=== PATIENT | male | born 1985 | race Caucasian/White ===

== ENCOUNTER 2019-07-24 02:25 | Emergency (ER) | payer SELFPAY ==
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
[2019-07-24 02:33] VITALS: BP 124/79; PULSE 92; RESP 18; TEMP 36.6; O2SAT 100; BMI 19.9
[2019-07-24 02:44] VITALS: RESP 18
[2019-07-24] MEDS: tetanus-dipt-pertussis 0.5 mL SDV IM (02:44)
[2019-07-24] MEDS: morphine 4 mg/mL SDV 1 mL IVP (02:44)
[2019-07-24] MEDS: iohexol 300 mg/mL 100 mL Btl IV (03:13)
[2019-07-24 03:22] LABS: Alanine Aminotransferase 41 U/L (0-41); Albumin Level 4.6 g/dL (3.5-5.2); Alkaline Phosphatase 90 IU/L (40-130); Anion Gap 14.7 (5-19); Aspartate Amino Transferase 26 U/L (0-40); Blood Urea Nitrogen 11 mg/dL (6-20); Calcium 9.6 mg/Dl (8.6-10.0); Carbon Dioxide 28 mmol/L (22-29); Chloride 100 mmol/L (98-107); Globulin 2.8 g/dL (1.3-4.6); Glomerular Filtration Rate 77.6 mL/min (90-130); Glucose 98 mg/dL (74-109); Potassium 3.7 mmol/L (3.5-5.1); Sodium 139 mmol/L (136-145); Total Bilirubin 0.5 mg/dL (0.15-1.2); Total Protein 7.4 g/dL (6.6-8.7)
--- NOTE | 2019-07-24 03:31 | PC.NURSE ---
c/o back pain and headache
[2019-07-24 04:14] VITALS: BP 106/84; PULSE 92; RESP 16; O2SAT 96
[2019-07-24 05:31] LABS: Basophils # 0.1 10^3/uL (0.0-0.1); Basophils % 1.2 %; Eosinophils # 0.2 10^3/uL (0.0-0.8); Eosinophils % 2.5 %; Hematocrit 45.2 % (42.0-52.0); Lymphocytes # 4.2 10^3/uL (0.8-4.8); Lymphocytes % 57.6 %; Mean Corpuscular HGB Conc 33.2 g/dL (30.0-36.0); Mean Corpuscular Hemoglobin 30.5 pg (28.0-34.0); Mean Corpuscular Volume 91.9 fL (80-94); Mean Platelet Volume 10.6 fL (7.4-10.4); Monocytes # 0.6 10^3/uL (0.2-0.9); Monocytes % 7.7 %; Neutrophils # 2.2 10^3/uL (1.8-7.7); Neutrophils % 30.7 %; Nucleated Red Blood Cells % 0 %; Platelet Count 217 10^3/cmm (130-400); Red Blood Count 4.92 10^6/uL (4.1-5.3); Red Cell Distribution Width 12.4 % (12.1-15.1); White Blood Count 7.3 10^3/uL (4.0-10.0)
[2019-07-24 05:56] LABS: INR 0.98 (0.8-1.2)
[2019-07-24 06:02] LABS: Slide Review Slide Review Perform
== END 2019-07-24 04:15 | disposition home or self-care (01) ==
PROVIDERS: Emergency Provider Emergency Medicine
DX: S39.012A Strain of muscle, fascia and tendon of lower back, initial encounter (principal); V59.9XXA Occupant (driver) (passenger) of pick-up truck or van injured in unspecified traffic accident, initial encounter; F17.210 Nicotine dependence, cigarettes, uncomplicated; Z23 Encounter for immunization
CPT/HCPCS: 70450; 70486; 71260; 72125; 74177; 80053; 85025; 85610; 90472; 90715; 96375; 99281; J2270; Q9967

== ENCOUNTER 2020-02-10 12:09 | Emergency (ER) | payer SELFPAY ==
[2020-02-10 12:21] VITALS: BP 129/80; PULSE 111; RESP 18; TEMP 36.6; O2SAT 95; BMI 19.5
--- NOTE | 2020-02-10 12:34 | W.ED.ABDPA2 ---
HPI - Abdominal Pain General: Chief Complaint: Abdominal Pain Stated Complaint: ABD PAIN Time Seen by Provider: 02/10/20 12:12 Source: patient Mode of arrival: other (police custody ) Limitations: no limitations History of Present Illness: HPI narrative: Patient is a 34-year-old male who arrives to the ED today in police custody for evaluation for right-sided abdominal pain. Patient tells me the pain began around 3 AM and awoke him from sleep. Patient tells me pain has been fairly constant since onset. He feels nauseous but has not had any episodes of vomiting. He reports normal bowel and urinary habits. He has not been running fevers. He states pain is localized to his right lower abdomen. He does have a history of kidney and ureter stones although states this feels different. MD elicited complaint: abdominal pain Onset (ago): hour(s) Pain Consistency: constant Location: RLQ Severity: moderate Quality: sharp Radiation: none Migration to: no migration Exacerbating factors: nothing Relieving factors: nothing Associated Symptoms: Reports nausea; Denies change in stool character, chills, coffee ground emesis, constipation, diarrhea, dysuria, fever(s), heartburn, hematochezia, hematemesis, melena, syncope and vomiting Review of Systems Const: Denies: fever(s) or chills Eyes: Denies: change in vision or blurry vision Card: Denies: chest pain, palpitations, irregular heart rhythm, lightheadedness, syncope or dyspnea on exertion Resp: Denies: dyspnea, productive cough or pain on inspiration GI: Reports: abdominal pain and nausea; Denies: vomiting, hematemesis, coffee ground emesis, heartburn, diarrhea, constipation, change in stool character, hematochezia or melena : Denies: flank pain, difficulty urinating, dysuria, urinary frequency, urinary urgency or urinary hesitancy Musc: Denies: neck pain, back pain or joint pain Skin/Breast: Denies: rash Neuro: Denies: headache(s) PFSH ED PFSH: Social History Smoking and tobacco status: current every day smoker Physical Exam Const: COMMON NORMALS: no acute distress, average body habitus, patient oriented x3, no limitations, healthy appearing, alert and well nourished Resp: COMMON NORMALS: normal respiratory effort and clear to auscultation bilaterally AUSCULTATION: clear to auscultation bilaterally Cardio: COMMON NORMALS: regular rate and regular rhythm RATE: regular rate RHYTHM: regular rhythm GI: COMMON NORMALS: Normal to inspection, nondistended, normoactive bowel sounds present, Soft to palpation, No hepatosplenomegaly present and no masses PALPATION: Yes Soft to palpation, Yes Tenderness to palpation present (GI) (suprapubic) Details: RLQ and Yes No hepatosplenomegaly present : COMMON NORMALS: Yes no CVA tenderness BLADDER/KIDNEY EXAM: Yes no CVA tenderness Back/Pelvis: COMMON NORMALS: no CVA tenderness Extremity: COMMON NORMALS: normal to inspection Neuro: COMMON NORMALS: patient oriented x3 SENSORIUM/ORIENTATION: Yes alert Skin: COMMON NORMALS: no rashes or lesions noted GENERAL SKIN EXAM: no rashes or lesions noted Course Vital Signs: Vital signs: Vital Signs Temperature 97.8 F 02/10/20 12:21 Pulse Rate 98 02/10/20 15:26 Respiratory Rate 18 02/10/20 15:26 Blood Pressure 117/87 02/10/20 15:26 Pulse Oximetry 98 02/10/20 15:26 MDM - Abdominal Pain MDM Narrative: Medical decision making narrative: Patient clinically appears well. Patient's labs showing mild leukocytosis at 14.9. Chemistry panel with elevated LFTs. He does have a history of hepatitis C. He has a normal CT abdomen/pelvis and a normal gallbladder ultrasound. UA does not look suspicious for kidney/ureterlithiasis or infection. Patient will be treated with pain and nausea medications. Return to ED precautions given. Lab Data: Labs: Lab Results 02/10/20 02/10/20 02/10/20 Range/Units 12:00 12:00 12:47 WBC 14.9 H (4.0-10.0) 10^3/ uL RBC 5.44 H (4.1-5.3) 10^6/u L Hgb 16.3 (11.7-16.6) g/dL Hct 50.0 (42.0-52.0) % MCV 91.9 (80-94) fL MCH 30.0 (28.0-34.0) pg MCHC 32.6 (30.0-36.0) g/dL RDW 12.5 (12.1-15.1) % Plt Count 287 (130-400) 10^3/c mm MPV 10.5 H (7.4-10.4) fL Neut % (Auto) 70.9 % Lymph % (Auto) 19.7 % [place] % (Auto) 7.7 % Eos % (Auto) 0.7 % Baso % (Auto) 0.4 % Neut # (Auto) 10.54 H (1.8-7.7) 10^3/u L Lymph # (Auto) 2.9 (0.8-4.8) 10^3/u L [place] # (Auto) 1.2 H (0.2-0.9) 10^3/u L Eos # (Auto) 0.1 (0.0-0.8) 10^3/u L Baso # (Auto) 0.1 (0.0-0.1) 10^3/u L Nucleated RBC % (a uto) 0 % Nucleated RBCs # 0.0 /100WBC Sodium Cancelled Potassium Cancelled Chloride Cancelled Carbon Dioxide Cancelled Anion Gap Cancelled BUN Cancelled Creatinine Cancelled GFR Calculation Cancelled Glucose Cancelled Calculated Osmolal ity Cancelled Calcium Cancelled Total Bilirubin Cancelled AST Cancelled ALT Cancelled Alkaline Phosphata se Cancelled Total Protein Cancelled Albumin Cancelled Globulin Cancelled Lipase Cancelled Urine Color Yellow (Yellow) Urine Appearance Clear (CLEAR) Urine pH 7 (5-7) Ur Specific Gravit y 1.015 (1.005-1.030) Urine Protein Neg (Negative) Urine Glucose (UA) Norm (Normal) Urine Ketones Negative (Negative) Urine Blood Neg (Negative) Urine Nitrate Negative (Negative) Urine Bilirubin Neg (NEGATIVE) Urine Urobilinogen 1 H (Negative) mg/dL Ur Leukocyte Shweta ase Negative (Negative) 02/10/20 Range/Units 13:18 WBC (4.0-10.0) 10^3/ uL RBC (4.1-5.3) 10^6/u L Hgb (11.7-16.6) g/dL Hct (42.0-52.0) % MCV (80-94) fL MCH (28.0-34.0) pg MCHC (30.0-36.0) g/dL RDW (12.1-15.1) % Plt Count (130-400) 10^3/c mm MPV (7.4-10.4) fL Neut % (Auto) % Lymph % (Auto) % [place] % (Auto) % Eos % (Auto) % Baso % (Auto) % Neut # (Auto) (1.8-7.7) 10^3/u L Lymph # (Auto) (0.8-4.8) 10^3/u L [place] # (Auto) (0.2-0.9) 10^3/u L Eos # (Auto) (0.0-0.8) 10^3/u L Baso # (Auto) (0.0-0.1) 10^3/u L Nucleated RBC % (a uto) % Nucleated RBCs # /100WBC Sodium 135 L Potassium 4.2 Chloride 102 Carbon Dioxide 24 Anion Gap 13.2 BUN 16 Creatinine 0.8 GFR Calculation 112.0 Glucose 101 Calculated Osmolal ity 276 L Calcium 9.8 Total Bilirubin 0.6 AST 134 H ALT 365 H Alkaline Phosphata se 77 Total Protein 7.7 Albumin 4.5 Globulin 3.2 Lipase 24 Urine Color (Yellow) Urine Appearance (CLEAR) Urine pH (5-7) Ur Specific Gravit y (1.005-1.030) Urine Protein (Negative) Urine Glucose (UA) (Normal) Urine Ketones (Negative) Urine Blood (Negative) Urine Nitrate (Negative) Urine Bilirubin (NEGATIVE) Urine Urobilinogen (Negative) mg/dL Ur Leukocyte Shweta ase (Negative) Imaging Data ^: CT Abd/Pel: Radiologist's impression: [place] [address] CT Scan Report Signed Patient: Juan Roque Unit #: [id number] : 1985 Age/Sex: 34 / M ADM Date: 02/10/20 Loc: ER Room/Bed: Attending Dr: Ordering Provider/Ordering MD: Loretta Pereyra Date of Service: 02/10/20 Procedure(s): CT abdomen pelvis w con* [id number] Accession Number(s): [id number] Report Number: [id number] PROCEDURE INFORMATION: Exam: CT Abdomen And Pelvis With Contrast Exam date and time: 02/10/2020 1:36 PM Age: 34 years old Clinical indication: Abdominal pain; Additional info: Rlq abdominal pain TECHNIQUE: Imaging protocol: Computed tomography of the abdomen and pelvis with intravenous contrast. Radiation optimization: All CT scans at this facility use at least one of these dose optimization techniques: automated exposure control; mA and/or kV adjustment per patient size (includes targeted exams where dose is matched to clinical indication); or iterative reconstruction. Contrast material: OMNI 300; Contrast volume: 95 ml; Contrast route: INTRAVENOUS (IV); COMPARISON: CT chest abd pel w con* 07/24/2019 3:17 AM RADIATION DOSE METRICS: Total DLP (mGy-cm): 511.65 FINDINGS: Liver: Normal. No mass. Gallbladder and bile ducts: Normal. No calcified stones. No ductal dilation. Pancreas: Normal. No ductal dilation. Spleen: Normal. No splenomegaly. Adrenals: Normal. No mass. Kidneys and ureters: Normal. No hydronephrosis. Stomach and bowel: Unremarkable. No obstruction. No mucosal thickening. Appendix: The appendix is visualized and appears normal. What may be appendix is seen on coronal image 31. Intraperitoneal space: Unremarkable. No free air. No significant fluid collection. Vasculature: Unremarkable. No abdominal aortic aneurysm. Lymph nodes: Unremarkable. No enlarged lymph nodes. Bladder: Unremarkable as visualized. Reproductive: Unremarkable as visualized. Bones/joints: Unremarkable. No acute fracture. Soft tissues: Unremarkable. CT/CT abdomen pelvis w con* [id number] IMPRESSION: There are no acute concerning abnormalities. Radiation Dose CTDIVOL = (mGy): DLP = 511.65 (mGy-cm) Dictated By: Karson Glover MD Signed By: Karson Glover MD Signed Date/Time: 02/10/20 1432 DD/ 1431 US gallbladder: Radiologist's impression: [facility] [address] [place] [address] Ultrasound Report Signed Patient: Juan Roque Unit #: [id number] : 1985 Age/Sex: 34 / M ADM Date: 02/10/20 Loc: ER Room/Bed: Attending Dr: Ordering Provider/Ordering MD: Loretta Pereyra Date of Service: 02/10/20 Procedure(s): US gall bladder [id number] Accession Number(s): [id number] Report Number: [id number] PROCEDURE INFORMATION: Exam: US Abdomen, Limited; Right Upper Quadrant Exam date and time: 02/10/2020 2:00 PM Age: 34 years old Clinical indication: Abdominal pain; Additional info: Elevated lfts; R sided abdominal pain TECHNIQUE: Imaging protocol: US abdomen. Real time ultrasound with image documentation. Limited exam focused on the right upper quadrant. COMPARISON: CT abdomen pelvis w con* [id number] 02/10/2020 1:41 PM FINDINGS: Liver: Normal. No masses. Gallbladder: Normal. No gallstones. There is no gallbladder wall thickening. Common bile duct: Normal. No stones. No dilation. Pancreas: Visualized pancreas is unremarkable. Right kidney: Measures 11.5 x 5 x 3.8 cm. No mass. No hydronephrosis. US/US gall bladder [id number] IMPRESSION: No acute findings. Dictated By: Karson Glover MD Signed By: Karson Glover MD Signed Date/Time: 02/10/20 1516 DD/ 14 Discharge Plan Discharge Patient Disposition: Home Clinical Impression: Right-sided abdominal pain of unknown etiology Condition: Stable Prescriptions: New Zofran 4 mg tablet 4 mg PO Q6H PRN (Reason: nausea and vomiting) Qty: 14 RF: 0 Tylenol-Codeine #3 300-30 mg tablet 1 tab PO Q6H PRN (Reason: pain) Qty: 10 RF: 0 Discharge Orders: Discharge Order (Routine); Ordered 02/10/20 Ordered By: Loretta Pereyra Patient Instructions: Abdominal Pain (ED) Activity Restrictions/Additional Instructions: You may return to the emergency department for severe pain, repetitive episodes of vomiting/diarrhea, fevers greater than 100.4, or any other concerns you may have. Discharge Date/Time: 02/10/20 15:28 Coding Level of Care Code ED Web [employer] for Chg Fwd Exam Detailed
[2020-02-10 12:49] LABS: Basophils # 0.1 10^3/uL (0.0-0.1); Basophils % 0.4 %; Eosinophils # 0.1 10^3/uL (0.0-0.8); Eosinophils % 0.7 %; Hemoglobin 16.3 g/dL (11.7-16.6); Lymphocytes # 2.9 10^3/uL (0.8-4.8); Lymphocytes % 19.7 %; Mean Corpuscular HGB Conc 32.6 g/dL (30.0-36.0); Mean Corpuscular Volume 91.9 fL (80-94); Mean Platelet Volume 10.5 fL (7.4-10.4); Monocytes # 1.2 10^3/uL (0.2-0.9); Monocytes % 7.7 %; Neutrophils # 10.54 10^3/uL (1.8-7.7); Neutrophils % 70.9 %; Nucleated Red Blood Cells % 0 %; Platelet Count 287 10^3/cmm (130-400); Red Blood Count 5.44 10^6/uL (4.1-5.3); Red Cell Distribution Width 12.5 % (12.1-15.1); White Blood Count 14.9 10^3/uL (4.0-10.0)
[2020-02-10 13:08] LABS: Add Urine Microscopic? NO
[2020-02-10 13:12] LABS: Bilirubin Urine Neg (NEGATIVE); Blood Urine Neg (Negative); Glucose Urine UA Norm (Normal); Ketones Urine Negative (Negative); Leukocyte Esterase Urine Negative (Negative); Nitrate Urine Negative (Negative); Protein Urine Neg (Negative); Specific Gravity, Urine 1.015 (1.005-1.030); Urine Appearance Clear (CLEAR); Urine Color Yellow (Yellow); Urobilinogen Urine 1 mg/dL (Negative); pH Urine 7 (5-7)
--- NOTE | 2020-02-10 13:20 | CTR_ITS ---
PROCEDURE INFORMATION: Exam: CT Abdomen And Pelvis With Contrast Exam date and time: 02/10/2020 1:36 PM Age: 34 years old Clinical indication: Abdominal pain; Additional info: Rlq abdominal pain TECHNIQUE: Imaging protocol: Computed tomography of the abdomen and pelvis with intravenous contrast. Radiation optimization: All CT scans at this facility use at least one of these dose optimization techniques: automated exposure control; mA and/or kV adjustment per patient size (includes targeted exams where dose is matched to clinical indication); or iterative reconstruction. Contrast material: OMNI 300; Contrast volume: 95 ml; Contrast route: INTRAVENOUS (IV); COMPARISON: CT chest abd pel w con* 07/24/2019 3:17 AM RADIATION DOSE METRICS: Total DLP (mGy-cm): 511.65 FINDINGS: Liver: Normal. No mass. Gallbladder and bile ducts: Normal. No calcified stones. No ductal dilation. Pancreas: Normal. No ductal dilation. Spleen: Normal. No splenomegaly. Adrenals: Normal. No mass. Kidneys and ureters: Normal. No hydronephrosis. Stomach and bowel: Unremarkable. No obstruction. No mucosal thickening. Appendix: The appendix is visualized and appears normal. What may be appendix is seen on coronal image 31. Intraperitoneal space: Unremarkable. No free air. No significant fluid collection. Vasculature: Unremarkable. No abdominal aortic aneurysm. Lymph nodes: Unremarkable. No enlarged lymph nodes. Bladder: Unremarkable as visualized. Reproductive: Unremarkable as visualized. Bones/joints: Unremarkable. No acute fracture. Soft tissues: Unremarkable. CT/CT abdomen pelvis w con* [id number] IMPRESSION: There are no acute concerning abnormalities. Radiation Dose CTDIVOL = (mGy): DLP = 511.65 (mGy-cm)
[2020-02-10] MEDS: ondansetron 2 mg/ML SDV 2 mL 4 MG IVP (13:32)
[2020-02-10 13:35] VITALS: RESP 18; O2SAT 99
[2020-02-10] MEDS: morphine 4 mg/mL SDV 1 mL IVP (13:35)
[2020-02-10] MEDS: iohexol 300 mg/mL 100 mL Btl IV (13:46)
[2020-02-10 13:54] LABS: Alanine Aminotransferase 365 U/L (0-41); Albumin Level 4.5 g/dL (3.5-5.2); Alkaline Phosphatase 77 IU/L (40-130); Anion Gap 13.2 (5-19); Aspartate Amino Transferase 134 U/L (0-40); Blood Urea Nitrogen 16 mg/dL (6-20); Calcium 9.8 mg/dL (8.5-10.5); Carbon Dioxide 24 mmol/L (22-29); Chloride 102 mmol/L (98-107); Creatinine Clr Calc Pharmacy 132.3398; Globulin 3.2 g/dL (1.3-4.6); Glucose 101 mg/dL (65-115); Lipase 24 U/L (13-60); Osmolality Calculated 276 mOsm/kg (285-295); Potassium 4.2 mmol/L (3.5-5.1); Sodium 135 mmol/L (136-145); Total Bilirubin 0.6 mg/dL (0.15-1.2); Total Protein 7.7 g/dL (6.6-8.7)
--- NOTE | 2020-02-10 13:59 | USR_ITS ---
PROCEDURE INFORMATION: Exam: US Abdomen, Limited; Right Upper Quadrant Exam date and time: 02/10/2020 2:00 PM Age: 34 years old Clinical indication: Abdominal pain; Additional info: Elevated lfts; R sided abdominal pain TECHNIQUE: Imaging protocol: US abdomen. Real time ultrasound with image documentation. Limited exam focused on the right upper quadrant. COMPARISON: CT abdomen pelvis w con* [id number] 02/10/2020 1:41 PM FINDINGS: Liver: Normal. No masses. Gallbladder: Normal. No gallstones. There is no gallbladder wall thickening. Common bile duct: Normal. No stones. No dilation. Pancreas: Visualized pancreas is unremarkable. Right kidney: Measures 11.5 x 5 x 3.8 cm. No mass. No hydronephrosis. US/US gall bladder [id number] IMPRESSION: No acute findings.
[2020-02-10 15:26] VITALS: BP 117/87; PULSE 98; RESP 18; O2SAT 98
== END 2020-02-10 15:28 | disposition home or self-care (01) ==
PROVIDERS: Emergency Provider Physician Assistant
DX: R10.9 Unspecified abdominal pain (principal); F17.210 Nicotine dependence, cigarettes, uncomplicated
CPT/HCPCS: 12345; 36415; 74177; 76705; 80053; 81003; 83690; 85025; 96374; 96375; 99282; 99284; J2270; J2405; Q9967

== ENCOUNTER 2020-02-29 21:59 | Emergency (ER) | payer SELFPAY ==
[2020-02-29 22:10] VITALS: BP 113/75; PULSE 62; RESP 18; TEMP 36.5; O2SAT 98; BMI 19.0
[2020-02-29 23:30] LABS: Basophils # 0.1 10^3/uL (0.0-0.1); Eosinophils # 0.1 10^3/uL (0.0-0.8); Eosinophils % 1.9 %; Hematocrit 43.6 % (42.0-52.0); Hemoglobin 14.1 g/dL (11.7-16.6); Lymphocytes # 3.4 10^3/uL (0.8-4.8); Lymphocytes % 45.8 %; Mean Corpuscular HGB Conc 32.3 g/dL (30.0-36.0); Mean Corpuscular Hemoglobin 29.4 pg (28.0-34.0); Mean Platelet Volume 10.5 fL (7.4-10.4); Monocytes # 0.7 10^3/uL (0.2-0.9); Monocytes % 9.8 %; Neutrophils # 3.02 10^3/uL (1.8-7.7); Neutrophils % 41.4 %; Nucleated Red Blood Cells % 0 %; Platelet Count 191 10^3/cmm (130-400); Red Blood Count 4.79 10^6/uL (4.1-5.3); Red Cell Distribution Width 12.2 % (12.1-15.1); White Blood Count 7.3 10^3/uL (4.0-10.0)
[2020-02-29 23:50] LABS: Alanine Aminotransferase 296 U/L (0-41); Albumin Level 4.4 g/dL (3.5-5.2); Alkaline Phosphatase 79 IU/L (40-130); Anion Gap 10.9 (5-19); Aspartate Amino Transferase 120 U/L (0-40); Blood Urea Nitrogen 12 mg/dL (6-20); Calcium 9.6 mg/dL (8.5-10.5); Carbon Dioxide 31 mmol/L (22-29); Chloride 104 mmol/L (98-107); Globulin 2.7 g/dL (1.3-4.6); Glomerular Filtration Rate 77.1 mL/min (90-130); Glucose 99 mg/dL (65-115); Osmolality Calculated 288 mOsm/kg (285-295); Potassium 4.9 mmol/L (3.5-5.1); Sodium 141 mmol/L (136-145); Total Bilirubin 0.4 mg/dL (0.15-1.2); Total Protein 7.1 g/dL (6.6-8.7)
--- NOTE | 2020-02-29 23:59 | W.ED.ABDPA2 ---
HPI - Abdominal Pain General: Chief Complaint: Abdominal Pain Stated Complaint: abd pain Time Seen by Provider: 02/29/20 23:59 Source: patient Mode of arrival: ambulatory Limitations: no limitations History of Present Illness: HPI narrative: Patient comes in for right-sided abdominal pain. Patient states he has hepatitis C and sometimes has liver pain. Patient appears well. Patient appears in no acute distress. Patient did report one episode of emesis this morning. MD elicited complaint: abdominal pain Associated Symptoms: Reports vomiting Review of Systems General: Reports: 10 or more systems reviewed and unremarkable except in HPI and below GI: Reports: abdominal pain and vomiting PFS ED PFSH: Social History Smoking and tobacco status: current every day smoker Physical Exam Const: COMMON NORMALS: no acute distress and patient oriented x3 GENERAL APPEARANCE: cooperative HENMT: COMMON NORMALS: normocephalic and Normal external nose present HEAD & SCALP: normal to inspection and normocephalic NOSE: Normal external nose present MOUTH: Normal oral and palatal mucosa present THROAT: posterior oropharynx normal Eye: GENERAL EYE: appearance normal, both eyes and all related structures Neck/C-Spine: COMMON NORMALS: full ROM Lymph: LYMPHATIC: no lymphadenopathy noted Chest: COMMONS NORMALS: normal inspection of the chest Resp: COMMON NORMALS: normal respiratory effort EFFORT & INSPECTION: Yes able to speak in complete sentences Cardio: COMMON NORMALS: regular rate and regular rhythm RATE: regular rate RHYTHM: regular rhythm GI: COMMON NORMALS: Soft to palpation AUSCULTATION: Yes normoactive bowel sounds PALPATION: Yes Soft to palpation and Yes Tenderness to palpation present (GI) Details: RUQ : COMMON NORMALS: Yes no CVA tenderness BLADDER/KIDNEY EXAM: Yes no CVA tenderness Back/Pelvis: COMMON NORMALS: no CVA tenderness and thoracic and lumbar spine normal to inspection Extremity: COMMON NORMALS: normal to inspection Neuro: COMMON NORMALS: patient oriented x3 and moves all extremities Psych: COMMON NORMALS: mental status grossly normal and cooperative Skin: COMMON NORMALS: no rashes or lesions noted GENERAL SKIN EXAM: no rashes or lesions noted Course Vital Signs: Vital signs: Vital Signs Temperature 97.7 F 02/29/20 22:10 Pulse Rate 87 03/01/20 00:50 Respiratory Rate 16 03/01/20 00:50 Blood Pressure 134/87 03/01/20 00:50 Pulse Oximetry 98 03/01/20 00:50 MDM - Abdominal Pain MDM Narrative: Medical decision making narrative: Patient comes in for right side abdominal pain. On exam patient appears well. Patient appears no acute distress. Abdomen is soft with some right upper quadrant abdominal tenderness. Vital signs were normal. Differential diagnosis includes but not limited to cholecystitis, pancreatitis, renal calculi, malingering. Laboratory values were unremarkable as it being no change from his previous exam 2 weeks ago. At that time patient had multiple imaging including CT of the abdomen and a ultrasound of the liver which showed no abnormalities. Reviewed exam with patient recommended follow-up with primary care for further evaluation and treatment. Patient reported understanding agreed to plan. Lab Data: Labs: Lab Results 02/29/20 02/29/20 02/29/20 Range/Units 23:10 23:10 23:10 WBC 7.3 (4.0-10.0) 10^3/ uL RBC 4.79 (4.1-5.3) 10^6/u L Hgb 14.1 (11.7-16.6) g/dL Hct 43.6 (42.0-52.0) % MCV 91.0 (80-94) fL MCH 29.4 (28.0-34.0) pg MCHC 32.3 (30.0-36.0) g/dL RDW 12.2 (12.1-15.1) % Plt Count 191 (130-400) 10^3/c mm MPV 10.5 H (7.4-10.4) fL Neut % (Auto) 41.4 % Lymph % (Auto) 45.8 % [place] % (Auto) 9.8 % Eos % (Auto) 1.9 % Baso % (Auto) 1.0 % Neut # (Auto) 3.02 (1.8-7.7) 10^3/u L Lymph # (Auto) 3.4 (0.8-4.8) 10^3/u L [place] # (Auto) 0.7 (0.2-0.9) 10^3/u L Eos # (Auto) 0.1 (0.0-0.8) 10^3/u L Baso # (Auto) 0.1 (0.0-0.1) 10^3/u L Nucleated RBC % (a uto) 0 % Nucleated RBCs # 0.0 /100WBC Sodium 141 (136-145) mmol/L Potassium 4.9 (3.5-5.1) mmol/L Chloride 104 (98-107) mmol/L Carbon Dioxide 31 H (22-29) mmol/L Anion Gap 10.9 (5-19) BUN 12 (6-20) mg/dL Creatinine 1.1 (0.7-1.2) mg/dL GFR Calculation 77.1 L (90-130) mL/min Glucose 99 (65-115) mg/dL Calculated Osmolal ity 288 (285-295) mOsm/k g Calcium 9.6 (8.5-10.5) mg/dL Total Bilirubin 0.4 (0.15-1.2) mg/dL AST 120 H (0-40) U/L ALT 296 H (0-41) U/L Alkaline Phosphata se 79 (40-130) IU/L Total Protein 7.1 (6.6-8.7) g/dL Albumin 4.4 (3.5-5.2) g/dL Globulin 2.7 (1.3-4.6) g/dL Lipase 37 (13-60) U/L Urine Color (Yellow) Urine Appearance (CLEAR) Urine pH (5-7) Ur Specific Gravit y (1.005-1.030) Urine Protein (Negative) Urine Glucose (UA) (Normal) Urine Ketones (Negative) Urine Blood (Negative) Urine Nitrate (Negative) Urine Bilirubin (NEGATIVE) Urine Urobilinogen (Negative) mg/dL Ur Leukocyte Shweta ase (Negative) 03/01/20 Range/Units 00:02 WBC (4.0-10.0) 10^3/ uL RBC (4.1-5.3) 10^6/u L Hgb (11.7-16.6) g/dL Hct (42.0-52.0) % MCV (80-94) fL MCH (28.0-34.0) pg MCHC (30.0-36.0) g/dL RDW (12.1-15.1) % Plt Count (130-400) 10^3/c mm MPV (7.4-10.4) fL Neut % (Auto) % Lymph % (Auto) % [place] % (Auto) % Eos % (Auto) % Baso % (Auto) % Neut # (Auto) (1.8-7.7) 10^3/u L Lymph # (Auto) (0.8-4.8) 10^3/u L [place] # (Auto) (0.2-0.9) 10^3/u L Eos # (Auto) (0.0-0.8) 10^3/u L Baso # (Auto) (0.0-0.1) 10^3/u L Nucleated RBC % (a uto) % Nucleated RBCs # /100WBC Sodium (136-145) mmol/L Potassium (3.5-5.1) mmol/L Chloride (98-107) mmol/L Carbon Dioxide (22-29) mmol/L Anion Gap (5-19) BUN (6-20) mg/dL Creatinine (0.7-1.2) mg/dL GFR Calculation (90-130) mL/min Glucose (65-115) mg/dL Calculated Osmolal ity (285-295) mOsm/k g Calcium (8.5-10.5) mg/dL Total Bilirubin (0.15-1.2) mg/dL AST (0-40) U/L ALT (0-41) U/L Alkaline Phosphata se (40-130) IU/L Total Protein (6.6-8.7) g/dL Albumin (3.5-5.2) g/dL Globulin (1.3-4.6) g/dL Lipase (13-60) U/L Urine Color Yellow (Yellow) Urine Appearance Clear (CLEAR) Urine pH 6 (5-7) Ur Specific Gravit y 1.020 (1.005-1.030) Urine Protein Neg (Negative) Urine Glucose (UA) Norm (Normal) Urine Ketones Negative (Negative) Urine Blood Neg (Negative) Urine Nitrate Negative (Negative) Urine Bilirubin Neg (NEGATIVE) Urine Urobilinogen Norm (Negative) mg/dL Ur Leukocyte Shweta ase Negative (Negative) Discharge Plan Discharge Patient Disposition: Home Clinical Impression: Abdominal pain Qualifiers: Abdominal location: right upper quadrant Qualified Code(s): R10.11 - Right upper quadrant pain Hepatitis C Qualifiers: Viral hepatitis chronicity: unspecified Hepatic coma status: without hepatic coma Qualified Code(s): B19.20 - Unspecified viral hepatitis C without hepatic coma Condition: Stable Prescriptions: New ondansetron HCl 4 mg tablet 4 mg PO Q8H PRN (Reason: nausea and vomiting) Qty: 7 RF: 0 No Action Zofran 4 mg tablet 4 mg PO Q6H PRN (Reason: nausea and vomiting) Qty: 14 RF: 0 Tylenol-Codeine #3 300-30 mg tablet 1 tab PO Q6H PRN (Reason: pain) Qty: 10 RF: 0 Discharge Orders: Discharge Order (Routine); Ordered 03/01/20 Ordered By: Francisco Javier Denson Discharge Diet: Usual diet Discharge Activity: Increase activity as tolerated Patient Instructions: Abdominal Pain (ED) Activity Restrictions/Additional Instructions: Home and rest. Drink plenty of fluids. Follow-up with primary care. Return to the emergency department for high fever greater than 100.4, blood in vomit or stool. Coding Level of Care Code ED Cdl Bulk Driver for Raman Fwandre Exam Comprehensive
[2020-03-01 00:15] LABS: Add Urine Microscopic? NO
[2020-03-01 00:26] LABS: Lipase 37 U/L (13-60)
[2020-03-01 00:37] LABS: Bilirubin Urine Neg (NEGATIVE); Blood Urine Neg (Negative); Glucose Urine UA Norm (Normal); Ketones Urine Negative (Negative); Leukocyte Esterase Urine Negative (Negative); Nitrate Urine Negative (Negative); Protein Urine Neg (Negative); Urine Appearance Clear (CLEAR); Urine Color Yellow (Yellow); Urobilinogen Urine Norm (Negative); pH Urine 6 (5-7)
[2020-03-01 00:50] VITALS: BP 134/87; PULSE 87; RESP 16; O2SAT 98
[2020-03-01 01:20] VITALS: BP 130/80; PULSE 80; RESP 18; O2SAT 99
== END 2020-03-01 01:20 | disposition home or self-care (01) ==
PROVIDERS: Emergency Provider Nurse Practitioner Family
DX: R10.11 Right upper quadrant pain (principal); B19.20 Unspecified viral hepatitis C without hepatic coma; F17.210 Nicotine dependence, cigarettes, uncomplicated
CPT/HCPCS: 12345; 80053; 81003; 83690; 85025; 99282; 99283

== ENCOUNTER 2020-04-02 21:05 | Emergency (ER) | payer SELFPAY ==
[2020-04-02 21:08] VITALS: PULSE 107; RESP 14; TEMP 37; O2SAT 96; BMI 19.5
--- NOTE | 2020-04-02 21:13 | ED_ITS ---
HPI - General Adult General: Chief complaint: General Medical Stated complaint: right ankle pain Time Seen by Provider: 04/02/20 21:08 History of Present Illness: HPI narrative: Patient is a 35-year-old male who comes to the ED with left foot pain and swelling. Patient says it started approximately 5 days ago. He denies any known injury to the left leg. He currently rates his pain a 7 out of 10. He has been applying ice on left foot and ankle to help with swelling. Denies any past MRSA or staph infections. Associated symptoms: Deny chest pain, dyspnea, headache(s), nausea, rash, palpitations or vomiting Review of Systems Const: Denies: fever(s), chills or fatigue Eyes: Denies: change in vision or eye discomfort ENMT: Denies: throat pain, odynophagia, nasal discharge or nasal congestion Card: Denies: chest pain, palpitations, edema, swelling of feet/ankles, dyspnea on exertion or orthopnea Resp: Denies: dyspnea, productive cough or non-productive cough GI: Denies: abdominal pain, nausea, vomiting, diarrhea, constipation or hematochezia : Denies: flank pain, difficulty urinating, dysuria or hematuria Musc: Reports: extremity pain (left foot) and extremity swelling (left foot swelling); Denies: neck pain or back pain Skin/Breast: Reports: erythema (skin on right foot); Denies: rash or new lesions Neuro: Denies: headache(s), numbness in extremities or weakness in extremities PFS ED PFSH: Social History Smoking and tobacco status: current every day smoker Physical Exam Const: COMMON NORMALS: no acute distress, patient oriented x3 and alert GENERAL APPEARANCE: cooperative and comfortable HENMT: COMMON NORMALS: normocephalic HEAD & SCALP: normocephalic MOUTH: Normal oral and palatal mucosa present THROAT: posterior oropharynx normal and uvula midline Eye: COMMON NORMALS: Equal, round and reactive pupils present PUPIL: Yes Equal, round and reactive pupils present Neck/C-Spine: COMMON NORMALS: supple GENERAL: Yes normal visual inspection Resp: COMMON NORMALS: normal respiratory effort, No retractions, No use of accessory muscles and clear to auscultation bilaterally AUSCULTATION: clear to auscultation bilaterally Cardio: COMMON NORMALS: regular rate, regular rhythm, S1 normal heart sound present, S2 normal heart sound present, No gallops present (Cardio), No clicks present (Cardio), No murmurs present (Cardio) and Peripheral pulses 2+ throughout RATE: regular rate RHYTHM: regular rhythm HEART SOUNDS: S1 normal heart sound present and S2 normal heart sound present PERIPHERAL PULSES: Peripheral pulses 2+ throughout GI: COMMON NORMALS: Normal to inspection, nondistended, normoactive bowel sounds present, Soft to palpation, non-tender and no masses PALPATION: Yes Soft to palpation : COMMON NORMALS: Yes no CVA tenderness BLADDER/KIDNEY EXAM: Yes no CVA tenderness Back/Pelvis: COMMON NORMALS: no CVA tenderness Extremity: GENERAL: Yes normal exam except as noted and Yes edema (2+ pitting edema on left foot that goes up into his ankle and approximately mid medrano region. Patient had 1+ pitting edema on right foot that did not go up above the ankle.) LEFT LOWER EXTREMITY: Yes foot & digits Left foot and digits: Yes inspection (2+ pitting edema in the left foot that goes up above ankle. Erythema and warmth still present on skin of left foot. No visible wounds seen), Yes palpation (Tender to palpation all over left foot), Yes ROM (Limited range of motion due to pain) and Yes neurovascular exam (Intact) Neuro: COMMON NORMALS: patient oriented x3 and moves all extremities SENSORIUM/ORIENTATION: Yes alert Skin: NARRATIVE SKIN EXAM: Erythema, warmth and tenderness to palpation on the skin left foot. No visible wound or drainage seen. Exam findings are suggestive of cellulitis. GENERAL SKIN EXAM: dry skin Course Vital Signs: Vital signs: Vital Signs Temperature 98.6 F 04/02/20 21:08 Pulse Rate 89 04/02/20 22:53 Respiratory Rate 18 04/02/20 22:53 Blood Pressure 158/76 04/02/20 22:53 Pulse Oximetry 98 04/02/20 22:53 MDM - General Adult MDM Narrative: Medical decision making narrative: Patient is a 35-year-old male comes to the ED with lower extremity edema and pain in the left foot. Denies any trauma or injury to cause pain. Physical exam shows 1+ pitting edema to right foot and left foot 2+ pitting edema. On left foot patient has tenderness to palpation throughout left foot and there is erythema and warmth of the skin. Findings are suggestive of cellulitis. Left foot x-ray was performed and showed no acute fractures or findings. Ultrasound venous duplex of both right and left lower extremities showed no DVTs or blood clots. Patient was diagnosed with cellulitis and sent home with a prescription for Bactrim. Return to ED precautions given. Patient was told to follow-up with PCP in 7 to 10 days. Take Tylenol or ibuprofen for pain. Patient understood and agreed with plan. Imaging Data^: Xray Ortho: Attestation: I personally reviewed and interpreted this imaging study as follows: My impression: Left foot x-ray showed no acute fractures or findings. US Vascular: Attestation: I personally reviewed and interpreted this imaging study as follows: Radiologist's impression: Ultrasound venous duplex bilateral lower extremities?prelim report showed no DVTs or blood clots. Discharge Plan Discharge Patient Disposition: Home Clinical Impression: Cellulitis Qualifiers: Site of cellulitis: extremity Site of cellulitis of extremity: lower extremity Laterality: left Qualified Code(s): L03.116 - Cellulitis of left lower limb Condition: Stable Prescriptions: New Bactrim DS 800-160 mg tablet 1 tab PO BID 7 Days Qty: 14 RF: 0 No Action No Known Home Medications RF: 0 Discharge Orders: Discharge Order (Routine); Ordered 04/02/20 Ordered By: Neo Garcia Discharge Diet: Regular Discharge Activity: Increase activity as tolerated Patient Instructions: Cellulitis (ED) Activity Restrictions/Additional Instructions: Follow-up with medical provider as directed 5-7 days. Take medications as prescribed. Return to the ER or your medical provider if condition worsens. Please read and understand discharge instructions. If any questions, please ask. 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
--- NOTE | 2020-04-02 21:19 | XR_ITS ---
WS: [id number] Left foot, 3 views, 04/02/2020 Clinical Data: left foot pain Comparison: Left foot, 03/18/2019. Findings: No fractures or dislocations are seen. No bone destruction or erosion is noted. The joint spaces and soft tissues are normal. There is swelling over the dorsum of the foot. XR/XR foot LT min 3V* [id number] Impression: Dorsal left foot swelling.
[2020-04-02] MEDS: HYDROcodone-acetaminophen 7.5-325 mg Tablet 1 TAB PO (21:29)
--- NOTE | 2020-04-02 21:56 | USCV_ITS ---
Juan Roque Age: 35 Gender: M : 1985 Exam Date: 04/02/2020 22:15 Ordering Phys: Neo Garcia Technologist: Bruce Perez Exam Location: [facility] [place] Indication: LEG PAIN HISTORY: Lower extremity pain. PROCEDURES: The venous duplex Doppler examination of both lower extremities was performed in the standard fashion. The following venous structures were evaluated: common femoral vein, profunda vein, proximal portion of the greater saphenous vein, superficial femoral vein, and the popliteal vein. In addition, the posterior tibial and peroneal trunk were evaluated. Bilaterally, the common femoral, superficial femoral, profunda femoral, popliteal, posterior tibial, greater saphenous veins, and the peroneal trunk were identified and interrogated in the standard fashion. These veins were found to be easily compressible with spontaneous blood flow. No evidence of insufficiency or thrombus noted. FINDINGS: Normal 2-D Doppler and augmentation and compressibility throughout the lower extremity venous structures. Additional imaging through the proximal calf veins also reveals no thrombus. Limited evaluation of the greater saphenous vein is patent with no thrombus.. CONCLUSIONS No evidence of right lower extremity DVT. No evidence of left lower extremity DVT. Luigi Hinkle MD (Electronically Signed) Final Date: 03 April 2020 12:49 S
[2020-04-02 22:53] VITALS: BP 158/76; PULSE 89; RESP 18; O2SAT 98
[2020-04-02] MEDS: sulfamethoxazole-trimeth DS 160-800 mg Tablet 1 TAB PO (22:53)
== END 2020-04-02 22:55 | disposition home or self-care (01) ==
PROVIDERS: Emergency Provider Physician Assistant
DX: L03.116 Cellulitis of left lower limb (principal); F17.210 Nicotine dependence, cigarettes, uncomplicated
CPT/HCPCS: 12345; 73630; 93970; 99281; 99283

== ENCOUNTER → 2023-08-04 11:00 | Outpatient (BNVA) | payer BC, SELFPAY | PROVIDERS: PCP Family Medicine; Visit Provider Family Medicine | DX: B19.20 Unspecified viral hepatitis C without hepatic coma (principal) | CPT/HCPCS: 80053; 80074; 84443; 85025; 87522; 87806; 87902 ==

== ENCOUNTER 2023-08-12 11:10 | Outpatient (CLI) | payer BC, MEDICAID, SELFPAY ==
--- NOTE | 2023-08-12 11:30 | US_ITS ---
WS: [id number] Complete ABDOMINAL ULTRASOUND HISTORY: liver eval for hep c COMPARISON: 02/10/2020 Liver: 15.6 cm in length. Normal size liver and echogenicity. No bile duct dilatation or mass. Portal Vein: Normal hepatopetal flow with monophasic waveform. Gallbladder: Normally distended gallbladder with no stones or wall thickening. CBD: 0.5 cm Pancreas: Normal size and echogenicity. Right kidney: 11.2 cm x 4.7 x 3.9 cm. Cortex: 1.3 cm. Normal size and echogenicity. No hydronephrosis or mass. Left kidney: 11.8 cm x 4.7 cm x 4.5 cm. Cortex: 1.3 cm. Normal size and echogenicity. No hydronephrosis or mass. Spleen: 11.3, normal. Aorta and IVC: Unremarkable abdominal aorta and IVC. Impression: Normal complete abdomen ultrasound.
== END 2023-08-12 11:11 | disposition home or self-care (01) ==
LOC: RAD 11:11
PROVIDERS: PCP Family Medicine; Visit Provider Family Medicine
DX: B19.20 Unspecified viral hepatitis C without hepatic coma (principal); K74.60 Unspecified cirrhosis of liver; R11.2 Nausea with vomiting, unspecified
CPT/HCPCS: 76700

== ENCOUNTER 2023-08-24 11:10 | Day surgery (SDC) | payer BC, MEDICAID, SELFPAY ==
[2023-08-24 11:23] VITALS: BP 110/74; PULSE 88; RESP 18; TEMP 36.9; O2SAT 96
[2023-08-24] MEDS: sodium chloride 0.9% 1,000 ML 30 ML IV (11:30)
--- NOTE | 2023-08-24 13:27 | P.HPUD_ITS ---
Surgery/Procedure H&P Update DATE OF PROCEDURE: August 24, 2023 DATE H&P PERFORMED: 08/11/23 H&P UPDATE INFORMATION: I have reviewed H&P completed within last 30 days, I have examined patient prior to procedure and No changes to prior documentation PLANNED PROCEDURE: Operation Date: 08/24/23 12:30 Proposed Procedures p [id number] egd [id number] colonoscopy G0121 screen colon a risk R11.2,Z12.11,(Not Lidia licable) - Noah Chin DO s Colonoscopy(Not Applicable) - Noah Chin DO
--- NOTE | 2023-08-24 13:27 | W.PM.OPSUD ---
Surgery/Procedure H&P Update DATE OF PROCEDURE: August 24, 2023 DATE H&P PERFORMED: 08/11/23 H&P UPDATE INFORMATION: I have reviewed H&P completed within last 30 days, I have examined patient prior to procedure and No changes to prior documentation PLANNED PROCEDURE: Operation Date: 08/24/23 12:30 Proposed Procedures p [id number] egd [id number] colonoscopy G0121 screen colon a risk R11.2,Z12.11,(Not Applicable) - DO ludy Rm Colonoscopy(Not Applicable) - Noah Chin DO
--- NOTE | 2023-08-24 13:29 | P.ANESASSM_ITS ---
Pre-Anesthetic Assessment Height/Weight: Height 1.8 m Weight 67.132 kg Temp Pulse Resp BP Pulse Ox O2 Del Method 98.4 F 88 18 110/74 96 Room Air 08/24/23 11:23 08/24/23 11:23 08/24/23 11:23 08/24/23 11:23 08/24/23 11:23 08/24/23 11:23 Preop Diagnosis: screening Operation Date: 08/24/23 12:30 Proposed Procedures p [id number] egd [id number] colonoscopy G0121 screen colon a risk R11.2,Z12.11,(Not Applicable) - Noah Chin DO s Colonoscopy(Not Applicable) - Noah Chin DO Was Beta Elana taken within 24 hours: N/A Was Clonidine taken within 24 hours: N/A Last intake: Intake Last Liquid Date 08/23/23 Last Liquid Time 00:00 Last Solid Date 08/22/23 Last Solid Time 23:00 Social Tobacco 1ppd pack(s) per day Exam alert and oriented x 3 Airway Submandibular: within normal limits Cervical ROM: within normal limits Mallampati: Class I Dentition: chipped, loose and other (poor 'decayed') History/ROS No significant history except as noted Pulmonary None reported CV/HEM None reported None reported Hepatic Hepatitis GI None reported Metabolic None reported Musc/skel None reported Neuropsych None reported Anesthetic Plan ASA status: 2 Anesthesia: MAC Risk of > 500 ml blood loss (7ml/kg in children): No Medications/Allergies Home Medications Medication Instructions Recorded Confirmed Last Taken Type amitriptyline 25 mg tablet 25 mg PO DAILY #30 tabs 08/04/23 08/24/23 08/23/23 Rx docusate sodium 100 mg capsule 100 mg PO BID #180 caps 08/04/23 08/24/23 08/23/23 Rx methadone 10 mg tablet 90 mg PO DAILY 08/04/23 08/24/23 08/23/23 History ondansetron 4 mg disintegrating 4 mg PO Q8H PRN nausea and 08/04/23 08/24/23 08/23/23 Rx tablet vomiting #30 tabs pantoprazole 40 mg tablet,delayed 40 mg PO DAILY #30 tabs 08/04/23 08/24/23 08/23/23 Rx release varenicline 0.5 mg (11)-1 mg (42) See Rx Instructions PO PER PKG DIR 08/04/23 08/24/23 08/23/23 Rx tablets in a dose pack ([employer] #53 ea Starting Month Box) azithromycin 250 mg tablet 250 mg PO DAILY 08/22/23 08/24/23 08/23/23 History (Zithromax Z-Ócsar) Allergies Allergy/AdvReac Type Severity Reaction Status Date / Time No Known Allergies Allergy Verified 08/22/23 12:25 [facility] Anesthesia Medical History History of intravenous drug abuse Smoker Insomnia Nausea & vomiting Cirrhosis Hepatitis C Surgical History No history of previous surgery Family History Grandfather Lung cancer Social History Smoking and tobacco/nicotine status: current every day tobacco/nicotine user cigarettes Packs smoked per day: 1 Years cigarettes smoked: 26 [ Other cigarette details: started at age 10] Quit status (tobacco/nicotine): considering quitting Alcohol intake: former Substance/Drug Use: former Date of last use: 2022 Former substance use details: heroine Household members: significant other Current occupational status: unemployed Data Anesthesia Cardiac Studies: No Data to Display
[2023-08-24 13:52] VITALS: BP 119/81; PULSE 91; RESP 20; TEMP 36.4; O2SAT 95
[2023-08-24 13:57] VITALS: BP 133/92; PULSE 97; RESP 20; O2SAT 96
[2023-08-24 14:07] VITALS: BP 121/63; PULSE 88; RESP 20; O2SAT 97
--- NOTE | 2023-08-24 14:53 | ANE.PACU2 ---
Inpatient post-anesthesia follow up: Airway intact: Yes Vital signs: Temperature 97.6 F Pulse Rate 88 Respiratory Rate 20 Blood Pressure 121/63 Pulse Oximetry 97 Oxygen Delivery Me thod Room Air Oxygen Flow Rate Fraction of Inspir ed Oxygen Hydration adequate: Yes Nausea and vomiting: No Pain level: 2 Mental status: Baseline
== END 2023-08-24 14:41 | disposition home or self-care (01) ==
PROVIDERS: PCP Family Medicine; Visit Provider Surgery
PROC: 0DJ08ZZ Inspection of Upper Intestinal Tract, Via Natural or Artificial Opening Endoscopic (ICD-10-PCS; CPT 43235; principal; 2023-08-24 12:30)
PROC: 0DJD8ZZ Inspection of Lower Intestinal Tract, Via Natural or Artificial Opening Endoscopic (ICD-10-PCS; CPT 45378; 2023-08-24 12:30)
DX: K92.2 Gastrointestinal hemorrhage, unspecified (principal); K21.9 Gastro-esophageal reflux disease without esophagitis; R11.2 Nausea with vomiting, unspecified; Z86.19 Personal history of other infectious and parasitic diseases; F17.200 Nicotine dependence, unspecified, uncomplicated
CPT/HCPCS: 43239; 45330; 88305; J2704; J3490; J7030

== ENCOUNTER → 2023-10-26 17:21 | Outpatient (BNVA) | payer BC, MEDICAID, SELFPAY | PROVIDERS: PCP Family Medicine; Visit Provider Registered Nurse Neonatal Intensive Care | DX: M25.572 Pain in left ankle and joints of left foot (principal); M79.672 Pain in left foot | CPT/HCPCS: 73610; 73630 ==

== ENCOUNTER 2023-11-03 21:05 | Emergency (ER) | payer BC, MEDICAID, SELFPAY ==
[2023-11-03 21:10] VITALS: BP 144/80; PULSE 62; RESP 15; TEMP 36.3; O2SAT 99
--- NOTE | 2023-11-03 21:19 | W.ED.EXTPRO ---
HPI - Extremity Problem General: Chief complaint: Extremity Injury, Upper Stated complaint: Right hand Injury Time Seen by Provider: 11/03/23 21:16 History of Present Illness: 38-year-old male patient comes in with injury to the right thumb. Patient reports he was using a saw and the frame came down onto his thumb injuring it. Patient believes he might of broke it. Patient does have some swelling and a superficial abrasion to the dorsal aspect of the distal phalanx. Patient cannot move thumb due to swelling. Patient states his tetanus is up-to-date. Review of Systems General: Reports: 10 or more systems reviewed and unremarkable except in HPI and below PFS ED [facility]: Medical History (Updated 11/03/23 @ 22:31 by ANGELINE Devlin) History of intravenous drug abuse Smoker Insomnia Nausea & vomiting Cirrhosis Hepatitis C Surgical History No history of previous surgery Family History Grandfather Lung cancer Social History Smoking and tobacco/nicotine status: current every day tobacco/nicotine user cigarettes Packs smoked per day: 1 Years cigarettes smoked: 26 [ Other cigarette details: started at age 10] Quit status (tobacco/nicotine): considering quitting Alcohol intake: former Substance/Drug Use: former Date of last use: 2022 Former substance use details: heroine Household members: significant other Current occupational status: unemployed Physical Exam Const: COMMON NORMALS: alert HENMT: COMMON NORMALS: normocephalic HEAD & SCALP: normocephalic Neck/C-Spine: COMMON NORMALS: no meningeal signs Resp: COMMON NORMALS: normal respiratory effort and clear to auscultation bilaterally AUSCULTATION: clear to auscultation bilaterally Cardio: COMMON NORMALS: regular rate and regular rhythm RATE: regular rate RHYTHM: regular rhythm GI: COMMON NORMALS: Soft to palpation and non-tender PALPATION: Yes Soft to palpation Back/Pelvis: COMMON NORMALS: thoracic and lumbar spine normal to inspection Extremity: RIGHT UPPER EXTREMITY: Yes hand & digits (Mild swelling of the thumb, superficial dorsal abrasion) Neuro: SENSORIUM/ORIENTATION: Yes alert MENINGEAL SIGNS: Yes no meningeal signs Skin: TRAUMA: abrasion (Right thumb swelling) Course Vital Signs: Vital signs: Vital Signs Temperature 97.4 F L 11/03/23 21:10 Pulse Rate 88 11/03/23 21:43 Respiratory Rate 12 11/03/23 21:43 Blood Pressure 111/68 11/03/23 21:43 Pulse Oximetry 97 11/03/23 21:43 Oxygen Delivery Me thod Room Air 11/03/23 21:10 MDM - Extremity (Nontraumatic) Medical Decision Making 38-year-old male patient comes in today for injury to the right thumb. On exam we note a mildly swollen thumb with the swelling to the distal end of phalanx joint. There is a superficial abrasion to the dorsal aspect of the distal thumb. Range of motion is limited due to pain and swelling. Cap refill is intact. Differential diagnosis includes fracture, contusion, osteoarthritis, abrasion. X-ray notes a distal phalanx fracture of the thumb on the right hand. Will cover patient with some antibiotics just due to the abrasion on the thumb. Recommend elevation of hand and ice packs to help with pain and swelling. Toradol was prescribed for further pain relief. Patient was recommended to follow-up with primary care for further instructions. XR interpretation done by ED provider, pending radiology final review Discharge Plan Discharge Patient Disposition: Home Clinical Impression: Fracture of distal phalanx of finger of right hand Condition: Stable Prescriptions: New ketorolac 10 mg tablet 10 mg PO Q6H PRN (Reason: pain) 3 Days Qty: 10 0RF No Action methadone 10 mg tablet 90 mg PO DAILY varenicline [[employer] Starting Month Box] 0.5 mg (11)- 1 mg (42) tablets,dose pack See Rx Instructions PO PER PKG DIR Qty: 53 0RF Rx Instructions: PO PER PKG DIR sennosides-docusate sodium [Senna with Docusate Sodium] 8.6-50 mg tablet 1 tab-cap PO DAILY PRN (Reason: constipation) Qty: 30 0RF Mavyret 100-40 mg tablet 3 tab PO DAILY 56 Days Qty: 168 0RF Rx Instructions: must administer with a meal/food amitriptyline 50 mg tablet 50 mg PO DAILY Qty: 30 0RF docusate sodium 100 mg capsule 100 mg PO BID Qty: 180 0RF ondansetron 4 mg tablet,disintegrating 4 mg PO Q8H PRN (Reason: nausea and vomiting) Qty: 30 0RF pantoprazole 40 mg tablet,delayed release (DR/EC) 40 mg PO DAILY Qty: 30 0RF Discharge Orders: Discharge ED (Routine); Ordered 11/03/23 Ordered By: Francisco Javier Denson Referrals: Blessing Beltran MD [Primary Care Provider] - Discharge Diet: Usual diet Discharge Activity: Increase activity as tolerated Patient Instructions: Finger Fracture (ED) Activity Restrictions/Additional Instructions: Home and rest. Elevate hand. Apply ice to it. Splint the thumb for protection. Follow-up with primary care for further instructions. 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
--- NOTE | 2023-11-03 21:22 | XRR_ITS ---
PROCEDURE INFORMATION: Exam: XR Right Hand Exam date and time: 11/03/2023 10:10 PM Age: 38 years old Clinical indication: Injury or trauma; Fall; Other: Unknown TECHNIQUE: Imaging protocol: Radiologic exam of the right hand. Views: 3 or more views. COMPARISON: No relevant prior studies available. FINDINGS: Bones/joints: Normal. Soft tissues: Normal. XR/XR hand RT min 3V* [id number] IMPRESSION: No acute findings.
[2023-11-03] MEDS: amoxicillin-clav 875-125 mg Tablet 1 TAB PO (21:29)
[2023-11-03] MEDS: ketorolac 10 mg Tablet PO (21:38)
[2023-11-03 21:43] VITALS: BP 111/68; PULSE 88; RESP 12; O2SAT 97
[2023-11-03 22:45] VITALS: RESP 20; O2SAT 99
[2023-11-03] MEDS: morphine 4 mg/mL SDV 1 mL IM (22:45)
[2023-11-03] MEDS: bacitracin ointment Pkt 1 EACH TOPICAL (22:46)
[2023-11-03 23:05] VITALS: BP 122/71; PULSE 53; RESP 16; O2SAT 99
== END 2023-11-03 23:06 | disposition home or self-care (01) ==
PROVIDERS: Emergency Provider Nurse Practitioner Family; PCP Family Medicine
DX: S62.521A Displaced fracture of distal phalanx of right thumb, initial encounter for closed fracture (principal); S60.311A Abrasion of right thumb, initial encounter; Z79.891 Long term (current) use of opiate analgesic; Z86.19 Personal history of other infectious and parasitic diseases; F17.210 Nicotine dependence, cigarettes, uncomplicated; W20.8XXA Other cause of strike by thrown, projected or falling object, initial encounter
CPT/HCPCS: 73130; 96372; 99284; J2270

== ENCOUNTER → 2023-11-07 10:42 | Outpatient (BNVA) | payer BC, MEDICAID, SELFPAY | PROVIDERS: PCP Family Medicine; Visit Provider Family Medicine | DX: B19.20 Unspecified viral hepatitis C without hepatic coma (principal) | CPT/HCPCS: 85610; 87522 ==

== ENCOUNTER 2024-03-27 10:12 | Outpatient (CLI) | payer BC, MEDICAID, SELFPAY ==
--- NOTE | 2024-03-27 10:18 | XRR_ITS ---
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 ; Additional info: Cough TECHNIQUE: Imaging protocol: Radiologic exam of the chest. Views: 2 views. COMPARISON: CT chest abdpel w/*[id number] 07/24/2019 3:17 AM FINDINGS: Lungs: No pulmonary vascular congestion, pulmonary edema or pneumonia. Pleural spaces: No pleural effusion or pneumothorax. Heart/Mediastinum: The cardiac silhouette is not enlarged. The mediastinal contours are normal. Bones/joints: No acute osseous abnormality. XR/XR chest 2V* [id number] IMPRESSION: No acute finding.
== END 2024-03-27 10:13 | disposition home or self-care (01) ==
LOC: RAD 10:14
PROVIDERS: PCP Family Medicine; Visit Provider Family Medicine
DX: R05.9 Cough, unspecified (principal)
CPT/HCPCS: 71046; 80053; 83735; 85025; 85379

== ENCOUNTER 2024-07-31 09:07 | Outpatient (CLI) | payer BC, MEDICAID, SELFPAY ==
--- NOTE | 2024-07-31 09:09 | XR_ITS ---
WS: [id number] LEFT WRIST: 3 VIEW(S) TECHNIQUE: PA, oblique and lateral. HISTORY: left wrist pain, hand weakness COMPARISON: None available. No acute fracture or dislocation. No joint space abnormality. No soft tissue swelling. XR/XR wrist LT min 3V* [id number] IMPRESSION: Negative LEFT wrist.
== END 2024-07-31 09:08 | disposition home or self-care (01) ==
LOC: RAD 09:08
PROVIDERS: PCP Family Medicine; Visit Provider Family Medicine
DX: M25.532 Pain in left wrist (principal)
CPT/HCPCS: 73110

== ENCOUNTER 2024-08-09 12:34 | Emergency (ER) | payer BC, MEDICAID, SELFPAY ==
[2024-08-09 13:05] VITALS: BP 137/92; PULSE 87; RESP 17; TEMP 36.7; O2SAT 97; BMI 20.9
--- NOTE | 2024-08-09 13:34 | ED_ITS ---
HPI - Back Pain/Injury 2 General: Chief Complaint: Back Pain/Injury Stated Complaint: back pain Time Seen by Provider: 08/09/24 13:33 Source: patient Mode of arrival: ambulatory Limitations: no limitations History of Present Illness: Patient is a 39-year-old male presents to ED today with complaint of pain to the left side of his back that started on 07/30 after he was lifting a log and heard a pop . Patient states he has had pain since. He saw Dr. Nash on 08/03 and given prednisone, robaxin, and ibuprofen. He does state this did seem to help symptoms but pain worsened again today. Pain is significantly worse with movement, coughing/sneezing/lifting/bending over. He is not having any chest pain or abdominal pain. No dysuria or hematuria. MD elicited complaint: back pain Onset (ago): day(s) Timing: intermittent and improved Severity: moderate Pain scale (0-10): 7 Location: left upper back Radiation: none Exacerbating factors: movement, coughing/sneezing and lifting Context: while lifting Associated symptoms: Reports no associated symptoms; Deny abdominal pain, dysuria, fever(s) or hematuria Related Data Home Medications Medication Instructions Recorded Confirmed methadone 10 mg tablet 90 mg PO DAILY 08/04/23 08/03/24 Previous Rx's Medication Instructions Recorded finger splint #1 ea 11/07/23 ondansetron 4 mg disintegrating 4 mg PO Q8H PRN nausea and 06/20/24 tablet vomiting #30 tabs ibuprofen 800 mg tablet 800 mg PO Q8H #45 tabs 08/03/24 left wrist brace #1 ea 08/05/24 methocarbamol 750 mg tablet 750 mg PO Q8H #30 tabs 08/09/24 Allergies Allergy/AdvReac Type Severity Reaction Status Date / Time No Known Allergies Allergy Verified 08/03/24 12:55 Review of Systems 2 Const: Denies: fever(s) Card: Denies: chest pain Resp: Denies: dyspnea GI: Denies: abdominal pain : Denies: flank pain, dysuria or hematuria Musc: Reports: back pain; Denies: neck pain, extremity pain, extremity swelling, joint pain or joint swelling Skin/Breast: Denies: rash Neuro: Denies: headache(s), numbness in extremities, weakness in extremities, sensory changes or dizziness PFSH ED 2 PFSH: Medical History History of intravenous drug abuse Smoker Insomnia Nausea & vomiting Cirrhosis Hepatitis C Surgical History No history of previous surgery Family History Grandfather Lung cancer Social History Smoking and tobacco/nicotine status: never used tobacco/nicotine Quit status (tobacco/nicotine): considering quitting Alcohol intake: former Substance/Drug Use: former Date of last use: 2022 Former substance use details: heroine Household members: significant other Current occupational status: unemployed Physical Exam 2 Const: COMMON NORMALS: no acute distress, average body habitus, patient oriented x3, no limitations, healthy appearing, alert and well nourished Chest: COMMONS NORMALS: normal inspection of the chest and normal palpation of entire chest wall Resp: COMMON NORMALS: normal respiratory effort and clear to auscultation bilaterally AUSCULTATION: clear to auscultation bilaterally Cardio: COMMON NORMALS: regular rate and regular rhythm RATE: regular rate RHYTHM: regular rhythm GI: COMMON NORMALS: Normal to inspection, nondistended, normoactive bowel sounds present, Soft to palpation, non-tender and no masses PALPATION: Yes Soft to palpation : COMMON NORMALS: Yes no CVA tenderness BLADDER/KIDNEY EXAM: Yes no CVA tenderness Back/Pelvis: COMMON NORMALS: no CVA tenderness, no thoracic nor lumbar tenderness and straight leg raise negative bilaterally THORACIC SPINE/UPPER BACK: Yes paraspinal muscle tenderness and Yes paraspinal muscle spasm LUMBAR SPINE/LOWER BACK: Yes normal to inspection, No lumbar spinal tenderness, No paraspinal muscle tenderness and No paraspinal muscle spasm PELVIS: Yes buttocks normal and No sciatic notch tenderness SACRUM: no tenderness C OCCYX: no tenderness BACK IMAGE (MALE): 1. TTP; spasm Extremity: COMMON NORMALS: normal to inspection GENERAL: Yes normal exam except as noted Neuro: COMMON NORMALS: patient oriented x3, moves all extremities, no focal motor deficits and no sensory deficits noted SENSORIUM/ORIENTATION: Yes alert Skin: COMMON NORMALS: no rashes or lesions noted GENERAL SKIN EXAM: no rashes or lesions noted Course 2 Vital Signs: Vital signs: Vital Signs Temperature 98.0 F 08/09/24 13:05 Pulse Rate 87 08/09/24 13:05 Respiratory Rate 17 08/09/24 13:05 Blood Pressure 137/92 08/09/24 13:05 Pulse Oximetry 97 08/09/24 13:05 Oxygen Delivery Me thod Room Air 08/09/24 13:05 MDM - Back Pain/Injury Medical Decision Making Patient's pain is significantly improved after IM medications. Currently rating it a 2/10. He has no acute neurologic deficits by history or physical examination. There is no indication for emergent imaging. Recommend follow-up with primary care. Will provide refill for his muscle relaxers. He can continue with [id number] anti-inflammatories. No radiology studies performed this visit Discharge Plan Discharge Patient Disposition: Home Clinical Impression: Muscle spasm of back Back strain Qualifiers: Encounter type: subsequent encounter Qualified Code(s): S39.012D - Strain of muscle, fascia and tendon of lower back, subsequent encounter Condition: Stable Prescriptions: Continued ibuprofen 800 mg tablet 800 mg PO Q8H Qty: 45 0RF methocarbamol 750 mg tablet 750 mg PO Q8H Qty: 30 0RF Discontinued prednisone 20 mg tablet 60 mg PO DAILY 5 Days Qty: 15 0RF cyclobenzaprine 5 mg tablet 5 mg PO TID PRN (Reason: muscle spasm) Qty: 20 0RF No Action methadone 10 mg tablet 90 mg PO DAILY (DME) finger splint See Rx Instructions .Route .MEDSUPPLY Qty: 1 0RF Rx Instructions: As directed ondansetron 4 mg tablet,disintegrating 4 mg PO Q8H PRN (Reason: nausea and vomiting) Qty: 30 0RF (DME) left wrist brace See Rx Instructions .Route .MEDSUPPLY Qty: 1 0RF Rx Instructions: As directed Discharge Orders: Discharge ED (Routine); Ordered 08/09/24 Ordered By: Loretta Pereyra Referrals: Blessing Beltran MD [Primary Care Provider] - Patient Instructions: Muscle Spasm (ED) Activity Restrictions/Additional Instructions: As we discussed, you may continue [id number] anti-inflammatories. Will refill your prescription for your Robaxin/muscle relaxer. You may apply heat to the area. Please follow-up with primary care in 1 to 2 weeks if symptoms do not seem to be improving. Coding Level of Care Code ED Global Sales Director for Raman Hancock
[2024-08-09] MEDS: dexamethasone 10 mg/mL INJ 8 MG IM (13:48)
[2024-08-09] MEDS: orphenadrine 30 mg/mL Inj 2 mL 60 MG IM (13:48)
[2024-08-09] MEDS: ketorolac 60 mg/2 mL INJ IM (13:49)
== END 2024-08-09 14:38 | disposition home or self-care (01) ==
PROVIDERS: Emergency Provider Physician Assistant; PCP Family Medicine
DX: S39.012D Strain of muscle, fascia and tendon of lower back, subsequent encounter (principal); X58.XXXA Exposure to other specified factors, initial encounter; M62.830 Muscle spasm of back
CPT/HCPCS: 96372; 99284; J1100; J1885; J2360

== ENCOUNTER 2025-03-30 15:19 | Emergency (ER) | payer BC, MEDICAID, SELFPAY ==
--- OUTSIDE RECORDS SUMMARY | 2025-03-30 15:26 | XMS_ITS | Clinical Summary ---
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
[2025-03-30 15:27] VITALS: BP 131/79; PULSE 79; RESP 18; TEMP 36.4; O2SAT 98; BMI 18.8
[2025-03-30 15:34] VITALS: PULSE 76; O2SAT 97
--- NOTE | 2025-03-30 15:37 | PC.NURSE ---
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
--- NOTE | 2025-03-30 15:49 | XRR_ITS ---
PROCEDURE INFORMATION: Exam: XR Left Humerus Exam date and time: 03/30/2025 3:58 PM Age: 40 years old Clinical indication: Injury or trauma; Fall; Laceration; Arm, upper; Left; Additional info: Lac/puncture wound to medial humerus approx midshaft; Eval for foreign bodies TECHNIQUE: Imaging protocol: Radiologic exam of the left humerus. Views: 2 or more views. COMPARISON: No relevant prior studies available. FINDINGS: Bones/joints: Normal. Soft tissues: Normal. XR/[place] [id number] IMPRESSION: No acute findings. No definite radiopaque debris or significant subcutaneous gas identified.
--- NOTE | 2025-03-30 15:49 | W.ED.WOUNDLC ---
HPI - Wound/Laceration General: Chief Complaint: Wound/Laceration Stated Complaint: LT arm bicep lac Time Seen by Provider: 03/30/25 15:20 History of Present Illness: Patient is a 40-year-old gentleman, on chronic pain medication, presents to the emergency room with acute laceration that occurred just prior to arrival. Patient tripped over extension cord and fell to his left upper arm directly on the back of a toilet with no ceramic top on it. He cut it on the open upper toilet. This is his proximal left mid posterior arm. A flap is hanging. There is no fat exposure. There is bleeding that is now controlled. Associated symptoms: Denies chills, fever(s), nausea or vomiting Related Data Home Medications ?Medication ?Instructions ?Recorded ?Confirmed methadone 10 mg tablet 90 mg PO DAILY 08/04/23 02/11/25 Previous Rx's ?Medication ?Instructions ?Recorded finger splint #1 ea 11/07/23 left wrist brace #1 ea 08/05/24 methocarbamol 750 mg tablet 750 mg PO Q8H #30 tabs 08/09/24 ondansetron 4 mg disintegrating 4 mg PO Q8H PRN nausea and 08/24/24 tablet vomiting #30 tabs ibuprofen 800 mg tablet 800 mg PO Q8H #45 tabs 02/11/25 cephalexin 500 mg capsule 500 mg PO BID 3 days #6 caps 03/30/25 Allergies Allergy/AdvReac Type Severity Reaction Status Date / Time No Known Allergies Allergy Verified 02/11/25 08:48 Review of Systems General: Reports: 10 or more systems reviewed and unremarkable except in HPI and below Const: Denies: fever(s), chills, body aches, fatigue or diaphoresis Eyes: Denies: change in vision or eye discharge ENMT: Denies: throat pain, odynophagia or hoarseness Card: Denies: chest pain, palpitations, irregular heart rhythm or swelling of feet/ankles Resp: Denies: dyspnea, productive cough, non-productive cough or wheezing GI: Denies: abdominal pain, nausea, vomiting or diarrhea Musc: Reports: extremity pain; Denies: neck pain or limited range of motion Skin/Breast: Denies: rash or pruritus Neuro: Denies: headache(s), numbness in extremities or sensory changes PFSH ED PFSH: Medical History (Updated 03/30/25 @ 17:00 by FESTUS Miller) Accidental wasp sting History of intravenous drug abuse Smoker Insomnia Nausea & vomiting Cirrhosis Hepatitis C Surgical History No history of previous surgery Family History Grandfather Lung cancer Social History Smoking and tobacco/nicotine status: current every day tobacco/nicotine user cigarettes Packs smoked per day: 1 Years cigarettes smoked: 26 [ Other cigarette details: started at age 10] Quit status (tobacco/nicotine): considering quitting Alcohol intake: former Substance/Drug Use: former Date of last use: 2022 Former substance use details: heroine Household members: significant other Current occupational status: unemployed Physical Exam Const: COMMON NORMALS: no acute distress, average body habitus and patient oriented x3 GENERAL APPEARANCE: anxious HENMT: COMMON NORMALS: normocephalic and atraumatic HEAD & SCALP: normocephalic and atraumatic Eye: COMMON NORMALS: Equal, round and reactive pupils present and EOMs intact bilaterally PUPIL: Yes Equal, round and reactive pupils present Lymph: LYMPHATIC: no lymphadenopathy noted Resp: COMMON NORMALS: normal respiratory effort, No retractions and clear to auscultation bilaterally AUSCULTATION: clear to auscultation bilaterally Cardio: COMMON NORMALS: regular rate and regular rhythm RATE: regular rate RHYTHM: regular rhythm GI: COMMON NORMALS: Normal to inspection, nondistended, normoactive bowel sounds present, Soft to palpation and non-tender INSPECTION: Yes normal to inspection PALPATION: Yes Soft to palpation : COMMON NORMALS: Yes no CVA tenderness BLADDER/KIDNEY EXAM: Yes no CVA tenderness Back/Pelvis: COMMON NORMALS: no CVA tenderness Extremity: EXTREMITY IMAGE (BACK):  1. Laceration, 4 cm Neuro: COMMON NORMALS: patient oriented x3 Skin: NARRATIVE SKIN EXAM: See laceration. Otherwise without rashes Procedures Laceration Laceration 1: Site: upper extremity Side (If applicable): left Size (cm): 5 Description: linear and flap Depth: simple, single layer Local Anesthetic: lidocaine 1% and with epi Amount of anesthesia used (mL): 4 Pre-repair: wound explored, irrigated extensively and deep structures intact Skin layer closed with: nylon Size (cm): 4-0 Number of sutures: 4 Course Vital Signs: Vital signs: Vital Signs Temperature 97.6 F 03/30/25 15:27 Pulse Rate 76 03/30/25 16:30 Respiratory Rate 18 03/30/25 15:27 Blood Pressure 112/65 03/30/25 16:30 Pulse Oximetry 97 03/30/25 16:30 Oxygen Delivery Me thod Room Air 03/30/25 16:30 MDM - Wound/Laceration Medical Decision Making Patient 40-year-old male with acute laceration to proximal left arm. X-ray will be ordered to rule out a foreign body. He is having anesthesia relief after lidocaine with epi. Will perform laceration after x-rays viewed. Medical Records I reviewed the patient's medical records. Lab Data Radiology Impressions Humerus X-Ray 03/30/25 15:49 IMPRESSION: No acute findings. No definite radiopaque debris or significant subcutaneous gas identified. XR interpretation done by ED provider, pending radiology final review Discharge Plan Discharge Patient Disposition: Home Clinical Impression: Laceration of left upper arm without complication Qualifiers: Encounter type: initial encounter Qualified Code(s): S41.112A - Laceration without foreign body of left upper arm, initial encounter Condition: Stable Prescriptions: New cephalexin 500 mg capsule 500 mg PO BID 3 Days Qty: 6 0RF No Action methadone 10 mg tablet 90 mg PO DAILY ibuprofen 800 mg tablet 800 mg PO Q8H Qty: 45 0RF (DME) finger splint See Rx Instructions .Route .MEDSUPPLY Qty: 1 0RF Rx Instructions: As directed (DME) left wrist brace See Rx Instructions .Route .MEDSUPPLY Qty: 1 0RF Rx Instructions: As directed ondansetron 4 mg tablet,disintegrating 4 mg PO Q8H PRN (Reason: nausea and vomiting) Qty: 30 0RF methocarbamol 750 mg tablet 750 mg PO Q8H Qty: 30 0RF Discharge Orders: Discharge ED (Routine); Ordered 03/30/25 Ordered By: Arlet Leung Referrals: Blessing Beltran MD [Primary Care Provider, Family Practice] Discharge Diet: Usual diet Discharge Activity: Resume usual activity Patient Instructions: Laceration (ED), Patient Portal & Lidia Instructions Activity Restrictions/Additional Instructions: Wash daily with antibacterial soap Place antibiotic ointment on it the first 24 hours, then Vaseline. You may uncover after the first 24 hours. Cover for work Remove in 10-12 days Prophylactic antibiotics have been sent to the pharmacy. Use as directed. Take probiotic or active culture yogurt to avoid infectious diarrhea Return to ED if you have worsening redness around the wound, drainage, fever greater than 100.4 ?F X-rays pending as we discussed Print Language: Occitan Coding Level of Care Code ED Hand Router Operator for Raman Hancock
[2025-03-30 16:30] VITALS: BP 112/65; PULSE 76; O2SAT 97
== END 2025-03-30 17:09 | disposition home or self-care (01) ==
PROVIDERS: Emergency Provider Physician Assistant; PCP Family Medicine
DX: S41.112A Laceration without foreign body of left upper arm, initial encounter (principal); W01.0XXA Fall on same level from slipping, tripping and stumbling without subsequent striking against object, initial encounter; F17.210 Nicotine dependence, cigarettes, uncomplicated
CPT/HCPCS: 12002; 73060; 99283